=== PATIENT | female | born 1945 | race Caucasian/White ===

== ENCOUNTER 2016-09-23 01:49 | Inpatient (IN) | payer OTHER ==
[~2016-09-23] VITALS: Ht 160 cm; Wt 143.2 kg
[2016-09-23] MEDS ORDERED: METHYLPRED SOD SUCC 125 MG/2 ML VIAL ONE (05:19)
[2016-09-23] MEDS ORDERED: DUONEB INH ONE ×3 (05:24→07:05)
[2016-09-23] MEDS ORDERED: SALINE FLUSH 10 ML FLUSH PRN (07:05)
[2016-09-23] MEDS ORDERED: NEB-ALBUTEROL 2.5 MG/3 ML INH PRN (07:05)
[2016-09-23] MEDS ORDERED: AZITHROMYCIN 500 MG VIAL IV ONE (07:15)
[2016-09-23] MEDS ORDERED: CEFTRIAXONE 1 GM VIAL ONE (07:16)
[2016-09-23] MEDS ORDERED: SODIUM CHLORIDE 0.9% 250 ML IV ONE (07:16)
[2016-09-23] MEDS: DUONEB INH SCH ×4 (07:18→23:35)
[2016-09-23] MEDS ORDERED: SODIUM CHLORIDE 0.9% 100 ML IV ONE (07:19)
[2016-09-23] MEDS ORDERED: GLUCAGON 1 MG VIAL IM PRN (08:10)
[2016-09-23] MEDS ORDERED: DEXTROSE 50% SYRINGE 50 ML IV PRN (08:10)
[2016-09-23 08:43] VITALS: BP_SYST 155; RESP 22; TEMP 98.5
[2016-09-23 08:48] VITALS: Ht 160 cm; Wt 143.2 kg
[2016-09-23] MEDS: NICOTINE 21 MG/24 HR TRANSDERM SCH (09:00)
[2016-09-23] MEDS ORDERED: KETAMINE INJ 50 MG/ML VIAL IV ONE (09:49)
[2016-09-23] MEDS ORDERED: LIDOCAINE 2% SYR 5 ML IV ONE (09:49)
[2016-09-23] MEDS ORDERED: ESMOLOL 100 MG/10 ML VL IV ONE (09:49)
[2016-09-23] MEDS ORDERED: PROPOFOL 50ML PER ML IV ONE (09:49)
[2016-09-23] MEDS ORDERED: GLYCOPYRROLATE 0.2 MG/ML VIAL IV ONE (09:49)
[2016-09-23 11:31] VITALS: BP_SYST 172; RESP 24; TEMP 98.5
[2016-09-23] MEDS: GUAIFENESIN ER 600 MG TABCR PO SCH ×2 (13:23→20:40)
[2016-09-23] MEDS: SALINE FLUSH 10 ML FLUSH SCH ×2 (13:26→20:40)
[2016-09-23] MEDS: ENOXAPARIN 30 MG/0.3 ML SYR SUBQ SCH (13:28)
[2016-09-23 15:48] VITALS: RESP 20
[2016-09-23 16:11] VITALS: BP_SYST 129; RESP 22; TEMP 98.7
[2016-09-23] MEDS: METHYLPRED SOD SUCC 125 MG/2 ML VIAL IV SCH (18:17)
[2016-09-23 20:17] VITALS: BP_SYST 121; RESP 22; TEMP 98.5
[2016-09-23] MEDS: FLUCONAZOLE 100 MG TAB PO SCH (22:41)
[2016-09-23] MEDS: NYSTATIN 15 GM TOPICAL SCH (22:41)
[2016-09-24] VITALS (7 sets, daily range): BP systolic 134–146; RESP 20–28; TEMP 97.6–98.3
[2016-09-24] MEDS: METHYLPRED SOD SUCC 125 MG/2 ML VIAL IV SCH ×4 (00:04→23:33)
[2016-09-24] MEDS: SODIUM CHLORIDE 0.9% FLUSH BAG 500 ML IV SCH (05:47)
[2016-09-24] MEDS: DUONEB INH SCH ×4 (08:38→23:04)
[2016-09-24] MEDS: SALINE FLUSH 10 ML FLUSH SCH ×2 (09:03→20:04)
[2016-09-24] MEDS: GUAIFENESIN ER 600 MG TABCR PO SCH ×2 (09:06→20:06)
[2016-09-24] MEDS: CEFTRIAXONE 1 GM in SODIUM CHLORIDE 0.9% 50 ML IV SCH (09:06)
[2016-09-24] MEDS: FLUCONAZOLE 100 MG TAB PO SCH (09:06)
[2016-09-24] MEDS: AZITHROMYCIN 250 MG TAB PO SCH (09:06)
[2016-09-24] MEDS: NYSTATIN 15 GM TOPICAL SCH ×2 (09:07→20:04)
[2016-09-24] MEDS: NICOTINE 21 MG/24 HR TRANSDERM SCH (09:07)
[2016-09-24] MEDS: ENOXAPARIN 30 MG/0.3 ML SYR SUBQ SCH (09:07)
[2016-09-24] MEDS ORDERED: CEPACOL LOZENGE PO PRN (18:05)
[2016-09-24] MEDS ORDERED: ACETAMINOPHEN 325 MG TAB PO PRN (18:35)
[2016-09-24] MEDS: TRAMADOL 50 MG TAB PO PRN (18:48)
[2016-09-24] MEDS: NEB-NACL 3% 4 ML NEBU INH SCH ×2 (18:51→23:04)
[2016-09-24] MEDS: NEB-BROVANA 15 MCG/2 ML INH SCH (18:51)
[2016-09-24] MEDS: NEB-BUDESONIDE 0.5 MG INH SCH (18:51)
[2016-09-25] VITALS (7 sets, daily range): BP systolic 138–156; RESP 20–22; TEMP 98–98.3
[2016-09-25] MEDS: SODIUM CHLORIDE 0.9% FLUSH BAG 500 ML IV SCH (05:06)
[2016-09-25] MEDS: NEB-BROVANA 15 MCG/2 ML INH SCH ×2 (06:56→18:12)
[2016-09-25] MEDS: DUONEB INH SCH ×4 (06:56→22:27)
[2016-09-25] MEDS: NEB-BUDESONIDE 0.5 MG INH SCH ×2 (06:56→18:12)
[2016-09-25] MEDS: NEB-NACL 3% 4 ML NEBU INH SCH ×4 (06:56→22:26)
[2016-09-25] MEDS: METHYLPRED SOD SUCC 125 MG/2 ML VIAL IV SCH ×3 (09:39→23:22)
[2016-09-25] MEDS: CEFTRIAXONE 1 GM in SODIUM CHLORIDE 0.9% 50 ML IV SCH (09:39)
[2016-09-25] MEDS: SALINE FLUSH 10 ML FLUSH SCH ×2 (09:39→20:02)
[2016-09-25] MEDS: AZITHROMYCIN 250 MG TAB PO SCH (09:40)
[2016-09-25] MEDS: GUAIFENESIN ER 600 MG TABCR PO SCH ×2 (09:40→20:03)
[2016-09-25] MEDS: ENOXAPARIN 30 MG/0.3 ML SYR SUBQ SCH (09:40)
[2016-09-25] MEDS: NYSTATIN 15 GM TOPICAL SCH ×2 (09:41→20:03)
[2016-09-25] MEDS: NICOTINE 21 MG/24 HR TRANSDERM SCH (09:41)
[2016-09-25] MEDS: FLUCONAZOLE 100 MG TAB PO SCH (09:43)
[2016-09-25] MEDS ORDERED: MISSING DOSE XX ONE ×2 (15:55→17:20)
[2016-09-25] MEDS: BUMETANIDE 1 MG/4 ML VIAL IV SCH ×2 (16:15→17:14)
[2016-09-25] MEDS: LEVEMIR INSULIN SUBQ SCH (20:20)
[2016-09-26 03:35] VITALS: BP_SYST 141; RESP 20; TEMP 98.1
[2016-09-26] MEDS: SODIUM CHLORIDE 0.9% FLUSH BAG 500 ML IV SCH (05:50)
[2016-09-26] MEDS: NEB-BUDESONIDE 0.5 MG INH SCH ×2 (07:27→19:00)
[2016-09-26] MEDS: DUONEB INH SCH ×4 (07:27→22:22)
[2016-09-26] MEDS: NEB-NACL 3% 4 ML NEBU INH SCH ×4 (07:28→22:22)
[2016-09-26] MEDS: NEB-BROVANA 15 MCG/2 ML INH SCH ×2 (07:28→19:00)
[2016-09-26 07:35] VITALS: BP_SYST 155; RESP 17; TEMP 98.1
[2016-09-26] MEDS: METHYLPRED SOD SUCC 125 MG/2 ML VIAL IV SCH (09:28)
[2016-09-26] MEDS: SALINE FLUSH 10 ML FLUSH SCH ×2 (09:28→20:46)
[2016-09-26] MEDS: CEFTRIAXONE 1 GM in SODIUM CHLORIDE 0.9% 50 ML IV SCH (09:29)
[2016-09-26] MEDS: BUMETANIDE 1 MG/4 ML VIAL IV SCH ×3 (09:29→20:45)
[2016-09-26] MEDS: GUAIFENESIN ER 600 MG TABCR PO SCH ×2 (09:30→20:45)
[2016-09-26] MEDS: AZITHROMYCIN 250 MG TAB PO SCH (09:30)
[2016-09-26] MEDS: NYSTATIN 15 GM TOPICAL SCH ×2 (09:30→20:59)
[2016-09-26] MEDS: FLUCONAZOLE 100 MG TAB PO SCH (09:30)
[2016-09-26] MEDS: ENOXAPARIN 30 MG/0.3 ML SYR SUBQ SCH (09:31)
[2016-09-26] MEDS: NICOTINE 21 MG/24 HR TRANSDERM SCH (09:31)
[2016-09-26] MEDS ORDERED: PREDNISONE 20 MG TAB PO SCH (11:35)
[2016-09-26 12:17] VITALS: BP_SYST 159; RESP 15; TEMP 98.5
[2016-09-26] MEDS: OXYMETAZOLINE 0.05% NOSE SPRAY NARE EACH SCH ×2 (13:17→20:46)
[2016-09-26] MEDS: FLUTICASONE 0.05% NA BTL NARE EACH SCH (13:17)
[2016-09-26 14:51] VITALS: BP_SYST 151; RESP 15; TEMP 97.8
[2016-09-26] MEDS: TRAMADOL 50 MG TAB PO PRN ×2 (17:36→22:25)
[2016-09-26 19:37] VITALS: BP_SYST 145; RESP 16; TEMP 98.5
[2016-09-26] MEDS: MICONAZOLE 2% PWD TOPICAL SCH (20:45)
[2016-09-26] MEDS ORDERED: MISSING DOSE XX ONE (20:45)
[2016-09-26] MEDS: LEVEMIR INSULIN SUBQ SCH (20:47)
[2016-09-26 22:52] VITALS: BP_SYST 150; RESP 16; TEMP 97.7
[2016-09-27] VITALS (7 sets, daily range): BP systolic 149–155; RESP 18; TEMP 97.7–98.1
[2016-09-27] MEDS: SODIUM CHLORIDE 0.9% FLUSH BAG 500 ML IV SCH (05:29)
[2016-09-27] MEDS: BUMETANIDE 1 MG/4 ML VIAL IV SCH ×3 (08:20→20:08)
[2016-09-27] MEDS: NICOTINE 21 MG/24 HR TRANSDERM SCH (08:20)
[2016-09-27] MEDS: OXYMETAZOLINE 0.05% NOSE SPRAY NARE EACH SCH ×2 (08:21→20:08)
[2016-09-27] MEDS: GUAIFENESIN ER 600 MG TABCR PO SCH ×2 (08:22→20:10)
[2016-09-27] MEDS: PREDNISONE 20 MG TAB PO SCH (08:22)
[2016-09-27] MEDS: MICONAZOLE 2% PWD TOPICAL SCH ×2 (08:22→20:11)
[2016-09-27] MEDS: FLUCONAZOLE 100 MG TAB PO SCH (08:22)
[2016-09-27] MEDS: ENOXAPARIN 30 MG/0.3 ML SYR SUBQ SCH (08:22)
[2016-09-27] MEDS: FLUTICASONE 0.05% NA BTL NARE EACH SCH (08:23)
[2016-09-27] MEDS: NYSTATIN 15 GM TOPICAL SCH ×2 (08:23→20:11)
[2016-09-27] MEDS: AZITHROMYCIN 250 MG TAB PO SCH (08:23)
[2016-09-27] MEDS: NEB-NACL 3% 4 ML NEBU INH SCH ×4 (08:33→22:58)
[2016-09-27] MEDS: DUONEB INH SCH ×3 (08:33→22:58)
[2016-09-27] MEDS: NEB-BROVANA 15 MCG/2 ML INH SCH ×2 (08:33→19:59)
[2016-09-27] MEDS: NEB-BUDESONIDE 0.5 MG INH SCH ×2 (08:34→19:59)
[2016-09-27] MEDS: SALINE FLUSH 10 ML FLUSH SCH ×2 (09:18→19:54)
[2016-09-27] MEDS: CEFTRIAXONE 1 GM in SODIUM CHLORIDE 0.9% 50 ML IV SCH (09:19)
[2016-09-27] MEDS: TRAMADOL 50 MG TAB PO PRN ×2 (14:08→20:21)
[2016-09-27] MEDS: Carvedilol 3.125 MG TAB PO SCH (20:10)
[2016-09-27] MEDS: LEVEMIR INSULIN SUBQ SCH (20:11)
[2016-09-28] VITALS (10 sets, daily range): BP systolic 136–174; RESP 18–20; TEMP 97.4–98.4
[2016-09-28] MEDS: SODIUM CHLORIDE 0.9% FLUSH BAG 500 ML IV SCH (05:08)
[2016-09-28] MEDS: DUONEB INH SCH ×4 (07:08→22:24)
[2016-09-28] MEDS: NEB-NACL 3% 4 ML NEBU INH SCH ×4 (07:09→22:24)
[2016-09-28] MEDS: NEB-BUDESONIDE 0.5 MG INH SCH ×3 (07:09→22:24)
[2016-09-28] MEDS: NEB-BROVANA 15 MCG/2 ML INH SCH ×3 (07:09→22:24)
[2016-09-28] MEDS: SALINE FLUSH 10 ML FLUSH SCH ×2 (08:00→20:01)
[2016-09-28] MEDS: MICONAZOLE 2% PWD TOPICAL SCH ×3 (08:18→21:00)
[2016-09-28] MEDS: CEFTRIAXONE 1 GM in SODIUM CHLORIDE 0.9% 50 ML IV SCH (08:18)
[2016-09-28] MEDS: OXYMETAZOLINE 0.05% NOSE SPRAY NARE EACH SCH ×2 (08:18→20:01)
[2016-09-28] MEDS: FLUTICASONE 0.05% NA BTL NARE EACH SCH (08:18)
[2016-09-28] MEDS: NYSTATIN 15 GM TOPICAL SCH ×3 (08:19→21:00)
[2016-09-28] MEDS: GUAIFENESIN ER 600 MG TABCR PO SCH ×2 (08:19→20:01)
[2016-09-28] MEDS: AZITHROMYCIN 250 MG TAB PO SCH (08:19)
[2016-09-28] MEDS: ENOXAPARIN 30 MG/0.3 ML SYR SUBQ SCH (08:20)
[2016-09-28] MEDS: PREDNISONE 20 MG TAB PO SCH (08:20)
[2016-09-28] MEDS: Carvedilol 3.125 MG TAB PO SCH ×2 (08:20→20:01)
[2016-09-28] MEDS: NICOTINE 21 MG/24 HR TRANSDERM SCH (08:21)
[2016-09-28] MEDS: BUMETANIDE 1 MG/4 ML VIAL IV SCH ×3 (08:39→20:01)
[2016-09-28] MEDS ORDERED: BUMETANIDE 1 MG/4 ML VIAL IV SCH (17:00)
[2016-09-28] MEDS: LEVEMIR INSULIN SUBQ SCH (20:02)
[2016-09-29] VITALS (10 sets, daily range): BP systolic 145–180; RESP 18–22; TEMP 97.8–98.3
[2016-09-29] MEDS: SODIUM CHLORIDE 0.9% FLUSH BAG 500 ML IV SCH (06:08)
[2016-09-29] MEDS: NEB-BROVANA 15 MCG/2 ML INH SCH ×2 (07:00→19:13)
[2016-09-29] MEDS: NEB-NACL 3% 4 ML NEBU INH SCH ×3 (07:00→19:13)
[2016-09-29] MEDS: DUONEB INH SCH ×3 (07:00→19:13)
[2016-09-29] MEDS: NEB-BUDESONIDE 0.5 MG INH SCH ×2 (07:00→19:13)
[2016-09-29] MEDS: CEFTRIAXONE 1 GM in SODIUM CHLORIDE 0.9% 50 ML IV SCH (09:26)
[2016-09-29] MEDS: SALINE FLUSH 10 ML FLUSH SCH ×2 (09:26→21:08)
[2016-09-29] MEDS: BUMETANIDE 1 MG/4 ML VIAL IV SCH (09:26)
[2016-09-29] MEDS: Carvedilol 3.125 MG TAB PO SCH ×2 (09:27→21:08)
[2016-09-29] MEDS: FLUTICASONE 0.05% NA BTL NARE EACH SCH (09:27)
[2016-09-29] MEDS: OXYMETAZOLINE 0.05% NOSE SPRAY NARE EACH SCH ×2 (09:27→21:08)
[2016-09-29] MEDS: GUAIFENESIN ER 600 MG TABCR PO SCH ×2 (09:28→21:08)
[2016-09-29] MEDS: PREDNISONE 20 MG TAB PO SCH (09:31)
[2016-09-29] MEDS: ENOXAPARIN 30 MG/0.3 ML SYR SUBQ SCH (09:32)
[2016-09-29] MEDS: NICOTINE 21 MG/24 HR TRANSDERM SCH (09:33)
[2016-09-29] MEDS: NYSTATIN 15 GM TOPICAL SCH ×2 (09:33→21:10)
[2016-09-29] MEDS: MICONAZOLE 2% PWD TOPICAL SCH ×2 (09:33→21:09)
[2016-09-29] MEDS: FAMOTIDINE 20 MG TAB PO SCH ×2 (14:56→21:08)
[2016-09-29] MEDS: BUMETANIDE 1 MG TAB PO SCH (17:49)
[2016-09-29] MEDS ORDERED: MISSING DOSE XX ONE (21:05)
[2016-09-29] MEDS: MONTELUKAST 10 MG TAB PO SCH (21:08)
[2016-09-29] MEDS: LEVEMIR INSULIN SUBQ SCH (21:10)
[2016-09-30] MEDS: DUONEB INH SCH ×5 (00:17→23:50)
[2016-09-30] MEDS: NEB-NACL 3% 4 ML NEBU INH SCH ×5 (00:18→23:50)
[2016-09-30 04:05] VITALS: BP_SYST 165
[2016-09-30 04:06] VITALS: RESP 18; TEMP 98
[2016-09-30] MEDS: SODIUM CHLORIDE 0.9% FLUSH BAG 500 ML IV SCH (06:07)
[2016-09-30] MEDS: NEB-BUDESONIDE 0.5 MG INH SCH ×2 (06:09→19:40)
[2016-09-30] MEDS: NEB-BROVANA 15 MCG/2 ML INH SCH ×2 (06:09→19:40)
[2016-09-30 07:27] VITALS: BP_SYST 163; RESP 20; TEMP 97.9
[2016-09-30] MEDS: Carvedilol 3.125 MG TAB PO SCH (09:00)
[2016-09-30] MEDS: NICOTINE 21 MG/24 HR TRANSDERM SCH (09:56)
[2016-09-30] MEDS: ENOXAPARIN 30 MG/0.3 ML SYR SUBQ SCH (09:56)
[2016-09-30] MEDS: CEFTRIAXONE 1 GM in SODIUM CHLORIDE 0.9% 50 ML IV SCH (09:58)
[2016-09-30] MEDS: MICONAZOLE 2% PWD TOPICAL SCH ×2 (09:58→20:10)
[2016-09-30] MEDS: GUAIFENESIN ER 600 MG TABCR PO SCH ×2 (09:59→20:08)
[2016-09-30] MEDS: FLUTICASONE 0.05% NA BTL NARE EACH SCH (09:59)
[2016-09-30] MEDS: BUMETANIDE 1 MG TAB PO SCH (09:59)
[2016-09-30] MEDS: OXYMETAZOLINE 0.05% NOSE SPRAY NARE EACH SCH ×2 (09:59→20:08)
[2016-09-30] MEDS: FAMOTIDINE 20 MG TAB PO SCH ×2 (09:59→20:08)
[2016-09-30] MEDS: PREDNISONE 20 MG TAB PO SCH (10:00)
[2016-09-30] MEDS: SALINE FLUSH 10 ML FLUSH SCH ×2 (10:02→20:08)
[2016-09-30] MEDS: Carvedilol 6.25 MG TAB PO SCH ×2 (10:05→20:08)
[2016-09-30] MEDS ORDERED: MISSING DOSE XX ONE ×2 (10:40→20:00)
[2016-09-30] MEDS: NYSTATIN 15 GM TOPICAL SCH ×2 (11:39→20:10)
[2016-09-30] MEDS: LEVOTHYROXINE 0.15 MG TAB PO SCH (12:59)
[2016-09-30 15:06] VITALS: BP_SYST 139; RESP 22; TEMP 98.2
[2016-09-30 19:34] VITALS: BP_SYST 154; RESP 20; TEMP 97.7
[2016-09-30] MEDS: MONTELUKAST 10 MG TAB PO SCH (20:08)
[2016-09-30] MEDS: LEVEMIR INSULIN SUBQ SCH (20:10)
[2016-09-30 23:19] VITALS: BP_SYST 150; RESP 18; TEMP 97.8
[2016-10-01] VITALS (14 sets, daily range): BP systolic 141–161; RESP 12–24; TEMP 97.3–98.2
[2016-10-01] MEDS: SODIUM CHLORIDE 0.9% FLUSH BAG 500 ML IV SCH (06:29)
[2016-10-01] MEDS: LEVOTHYROXINE 0.15 MG TAB PO SCH (07:00)
[2016-10-01] MEDS: NEB-BUDESONIDE 0.5 MG INH SCH ×2 (08:01→19:09)
[2016-10-01] MEDS: DUONEB INH SCH ×4 (08:01→23:05)
[2016-10-01] MEDS: NEB-BROVANA 15 MCG/2 ML INH SCH ×2 (08:01→19:09)
[2016-10-01] MEDS: NEB-NACL 3% 4 ML NEBU INH SCH ×4 (08:01→23:05)
[2016-10-01] MEDS: PREDNISONE 20 MG TAB PO SCH (09:00)
[2016-10-01] MEDS: GUAIFENESIN ER 600 MG TABCR PO SCH ×2 (09:00→20:43)
[2016-10-01] MEDS: FAMOTIDINE 20 MG TAB PO SCH ×2 (09:00→20:43)
[2016-10-01] MEDS: BUMETANIDE 1 MG TAB PO SCH (09:00)
[2016-10-01] MEDS: FLUTICASONE 0.05% NA BTL NARE EACH SCH (09:00)
[2016-10-01] MEDS: Carvedilol 6.25 MG TAB PO SCH ×2 (09:00→20:43)
[2016-10-01] MEDS: NYSTATIN 15 GM TOPICAL SCH ×2 (09:00→22:15)
[2016-10-01] MEDS: OXYMETAZOLINE 0.05% NOSE SPRAY NARE EACH SCH ×2 (09:00→20:42)
[2016-10-01] MEDS: NICOTINE 21 MG/24 HR TRANSDERM SCH (12:28)
[2016-10-01] MEDS: MICONAZOLE 2% PWD TOPICAL SCH ×2 (12:29→20:45)
[2016-10-01] MEDS: SALINE FLUSH 10 ML FLUSH SCH ×2 (12:29→20:42)
[2016-10-01] MEDS: ENOXAPARIN 30 MG/0.3 ML SYR SUBQ SCH (12:29)
[2016-10-01] MEDS ORDERED: LACT RINGERS 1,000 ML IV SCH (14:00)
[2016-10-01] MEDS ORDERED: LIDOCAINE 1% BUFFERED 1 ML SYR INTRADERM PRN (14:00)
[2016-10-01] MEDS ORDERED: MISSING DOSE XX ONE (20:40)
[2016-10-01] MEDS: MONTELUKAST 10 MG TAB PO SCH (20:43)
[2016-10-01] MEDS: LEVEMIR INSULIN SUBQ SCH (20:54)
[2016-10-02 03:23] VITALS: BP_SYST 134; RESP 18; TEMP 98.3
[2016-10-02] MEDS: SODIUM CHLORIDE 0.9% FLUSH BAG 500 ML IV SCH (05:14)
[2016-10-02] MEDS: LEVOTHYROXINE 0.15 MG TAB PO SCH (06:11)
[2016-10-02] MEDS: NEB-NACL 3% 4 ML NEBU INH SCH ×4 (06:46→22:46)
[2016-10-02] MEDS: DUONEB INH SCH ×4 (06:47→22:47)
[2016-10-02] MEDS: NEB-BROVANA 15 MCG/2 ML INH SCH ×2 (06:47→18:50)
[2016-10-02] MEDS: NEB-BUDESONIDE 0.5 MG INH SCH ×2 (06:47→18:50)
[2016-10-02 07:20] VITALS: BP_SYST 145; RESP 20; TEMP 97.1
[2016-10-02] MEDS: Carvedilol 6.25 MG TAB PO SCH ×2 (09:00→20:44)
[2016-10-02] MEDS: OXYMETAZOLINE 0.05% NOSE SPRAY NARE EACH SCH ×2 (09:26→20:44)
[2016-10-02] MEDS: MICONAZOLE 2% PWD TOPICAL SCH ×2 (09:26→20:45)
[2016-10-02] MEDS: NYSTATIN 15 GM TOPICAL SCH ×2 (09:26→20:45)
[2016-10-02] MEDS: FLUTICASONE 0.05% NA BTL NARE EACH SCH (09:26)
[2016-10-02] MEDS: SALINE FLUSH 10 ML FLUSH SCH ×2 (09:26→20:44)
[2016-10-02] MEDS: BUMETANIDE 1 MG TAB PO SCH (09:27)
[2016-10-02] MEDS: NICOTINE 21 MG/24 HR TRANSDERM SCH (09:27)
[2016-10-02] MEDS: FAMOTIDINE 20 MG TAB PO SCH ×2 (09:28→20:44)
[2016-10-02] MEDS: GUAIFENESIN ER 600 MG TABCR PO SCH ×2 (09:28→20:45)
[2016-10-02] MEDS: ENOXAPARIN 30 MG/0.3 ML SYR SUBQ SCH (09:30)
[2016-10-02] MEDS: PREDNISONE 20 MG TAB PO SCH (09:31)
[2016-10-02 10:54] VITALS: BP_SYST 135; RESP 19; TEMP 97.7
[2016-10-02 15:02] VITALS: BP_SYST 125; RESP 18; TEMP 97.1
[2016-10-02 19:24] VITALS: BP_SYST 124; RESP 16; TEMP 97.8
[2016-10-02] MEDS: MONTELUKAST 10 MG TAB PO SCH (20:44)
[2016-10-02] MEDS: LEVEMIR INSULIN SUBQ SCH (20:55)
[2016-10-02 23:10] VITALS: BP_SYST 134; RESP 18; TEMP 97.6
[2016-10-03 03:28] VITALS: BP_SYST 120; RESP 20; TEMP 97.2
[2016-10-03] MEDS: SODIUM CHLORIDE 0.9% FLUSH BAG 500 ML IV SCH (05:23)
[2016-10-03] MEDS: LEVOTHYROXINE 0.15 MG TAB PO SCH (06:14)
[2016-10-03] MEDS: NEB-NACL 3% 4 ML NEBU INH SCH ×4 (06:49→23:00)
[2016-10-03] MEDS: NEB-BROVANA 15 MCG/2 ML INH SCH ×2 (06:49→19:30)
[2016-10-03] MEDS: NEB-BUDESONIDE 0.5 MG INH SCH ×2 (06:49→19:30)
[2016-10-03] MEDS: DUONEB INH SCH ×4 (06:49→23:00)
[2016-10-03 07:47] VITALS: BP_SYST 144; RESP 15; TEMP 98.1
[2016-10-03] MEDS: NICOTINE 21 MG/24 HR TRANSDERM SCH (08:26)
[2016-10-03] MEDS: SALINE FLUSH 10 ML FLUSH SCH ×2 (08:26→20:58)
[2016-10-03] MEDS: NYSTATIN 15 GM TOPICAL SCH ×2 (08:27→21:00)
[2016-10-03] MEDS: ENOXAPARIN 30 MG/0.3 ML SYR SUBQ SCH (08:27)
[2016-10-03] MEDS: FLUTICASONE 0.05% NA BTL NARE EACH SCH (08:27)
[2016-10-03] MEDS: MICONAZOLE 2% PWD TOPICAL SCH ×2 (08:27→21:00)
[2016-10-03] MEDS: OXYMETAZOLINE 0.05% NOSE SPRAY NARE EACH SCH ×2 (08:27→20:58)
[2016-10-03] MEDS: Carvedilol 6.25 MG TAB PO SCH ×2 (09:00→20:58)
[2016-10-03] MEDS: BUMETANIDE 1 MG TAB PO SCH (10:39)
[2016-10-03] MEDS: GUAIFENESIN ER 600 MG TABCR PO SCH ×2 (10:40→20:59)
[2016-10-03] MEDS: FAMOTIDINE 20 MG TAB PO SCH ×2 (10:40→20:58)
[2016-10-03] MEDS: PREDNISONE 20 MG TAB PO SCH (10:40)
[2016-10-03 11:44] VITALS: BP_SYST 149; RESP 15; TEMP 97.9
[2016-10-03 15:42] VITALS: BP_SYST 148; RESP 15; TEMP 97.3
[2016-10-03 19:48] VITALS: BP_SYST 158; RESP 18; TEMP 97.9
[2016-10-03] MEDS: MONTELUKAST 10 MG TAB PO SCH (20:58)
[2016-10-03] MEDS: LEVEMIR INSULIN SUBQ SCH (21:00)
[2016-10-04] VITALS (7 sets, daily range): BP systolic 148–160; RESP 12–22; TEMP 97.9–98.6
[2016-10-04] MEDS: SODIUM CHLORIDE 0.9% FLUSH BAG 500 ML IV SCH (06:00)
[2016-10-04] MEDS: LEVOTHYROXINE 0.15 MG TAB PO SCH (07:00)
[2016-10-04] MEDS: NEB-BUDESONIDE 0.5 MG INH SCH ×2 (07:57→19:50)
[2016-10-04] MEDS: NEB-BROVANA 15 MCG/2 ML INH SCH ×2 (07:57→19:49)
[2016-10-04] MEDS: DUONEB INH SCH ×4 (07:57→23:23)
[2016-10-04] MEDS: NEB-NACL 3% 4 ML NEBU INH SCH ×4 (07:58→23:23)
[2016-10-04] MEDS: SALINE FLUSH 10 ML FLUSH SCH ×2 (08:00→20:00)
[2016-10-04] MEDS: NYSTATIN 15 GM TOPICAL SCH ×2 (08:26→20:59)
[2016-10-04] MEDS: MICONAZOLE 2% PWD TOPICAL SCH ×2 (08:26→20:59)
[2016-10-04] MEDS: FLUTICASONE 0.05% NA BTL NARE EACH SCH (08:26)
[2016-10-04] MEDS: Carvedilol 6.25 MG TAB PO SCH ×2 (08:27→20:58)
[2016-10-04] MEDS: FAMOTIDINE 20 MG TAB PO SCH ×2 (08:27→20:57)
[2016-10-04] MEDS: ENOXAPARIN 30 MG/0.3 ML SYR SUBQ SCH (08:27)
[2016-10-04] MEDS: NICOTINE 21 MG/24 HR TRANSDERM SCH (08:27)
[2016-10-04] MEDS: GUAIFENESIN ER 600 MG TABCR PO SCH ×2 (08:27→20:59)
[2016-10-04] MEDS: BUMETANIDE 1 MG TAB PO SCH (08:27)
[2016-10-04] MEDS: PREDNISONE 20 MG TAB PO SCH (08:27)
[2016-10-04] MEDS: OXYMETAZOLINE 0.05% NOSE SPRAY NARE EACH SCH ×2 (08:28→20:57)
[2016-10-04] MEDS: MONTELUKAST 10 MG TAB PO SCH (20:58)
[2016-10-04] MEDS: LEVEMIR INSULIN SUBQ SCH (21:26)
[2016-10-05 03:30] VITALS: BP_SYST 155; RESP 22; TEMP 98.6
[2016-10-05] MEDS: LEVOTHYROXINE 0.15 MG TAB PO SCH (05:58)
[2016-10-05] MEDS: DUONEB INH SCH (06:00)
[2016-10-05] MEDS: NEB-BROVANA 15 MCG/2 ML INH SCH (06:00)
[2016-10-05] MEDS: NEB-BUDESONIDE 0.5 MG INH SCH (06:00)
[2016-10-05] MEDS: SODIUM CHLORIDE 0.9% FLUSH BAG 500 ML IV SCH (06:00)
[2016-10-05] MEDS: NEB-NACL 3% 4 ML NEBU INH SCH (06:00)
[2016-10-05 07:27] VITALS: BP_SYST 140; RESP 20; TEMP 98.7
[2016-10-05] MEDS: SALINE FLUSH 10 ML FLUSH SCH (07:58)
[2016-10-05] MEDS: OXYMETAZOLINE 0.05% NOSE SPRAY NARE EACH SCH (08:11)
[2016-10-05] MEDS: MICONAZOLE 2% PWD TOPICAL SCH (08:11)
[2016-10-05] MEDS: GUAIFENESIN ER 600 MG TABCR PO SCH (08:12)
[2016-10-05] MEDS: BUMETANIDE 1 MG TAB PO SCH (08:12)
[2016-10-05] MEDS: Carvedilol 6.25 MG TAB PO SCH (08:12)
[2016-10-05] MEDS: FLUTICASONE 0.05% NA BTL NARE EACH SCH (08:12)
[2016-10-05] MEDS: PREDNISONE 20 MG TAB PO SCH (08:13)
[2016-10-05] MEDS: FAMOTIDINE 20 MG TAB PO SCH (08:13)
[2016-10-05] MEDS: NYSTATIN 15 GM TOPICAL SCH (08:14)
[2016-10-05] MEDS: NICOTINE 21 MG/24 HR TRANSDERM SCH (08:14)
[2016-10-05] MEDS: ENOXAPARIN 30 MG/0.3 ML SYR SUBQ SCH (08:14)
[2016-10-05 11:16] VITALS: BP_SYST 140; RESP 20; TEMP 98.7
== END 2016-10-05 12:12 | disposition home health service (06) | DRG 189 ==
LOC: ENRESERVTM → ENRESERVDT → ER 01:49 → ENPENDDIS 07:03 → EMR 07:03 → 5THW 08:30 → 3NT 10-04 11:57
PROVIDERS: ADMIT Family Medicine Addiction Medicine; ATTEND Family Medicine Addiction Medicine
PROC: 0BB48ZX Excision of Right Upper Lobe Bronchus, Via Natural or Artificial Opening Endoscopic, Diagnostic (ICD-10-PCS; 2016-10-01)
PROC: 0BB88ZX Excision of Left Upper Lobe Bronchus, Via Natural or Artificial Opening Endoscopic, Diagnostic (ICD-10-PCS; 2016-10-01)
PROC: 0BB58ZX Excision of Right Middle Lobe Bronchus, Via Natural or Artificial Opening Endoscopic, Diagnostic (ICD-10-PCS; 2016-10-01)
PROC: 0BB38ZX Excision of Right Main Bronchus, Via Natural or Artificial Opening Endoscopic, Diagnostic (ICD-10-PCS; 2016-10-01)
PROC: 0BB78ZX Excision of Left Main Bronchus, Via Natural or Artificial Opening Endoscopic, Diagnostic (ICD-10-PCS; 2016-10-01)
PROC: 0BB68ZX Excision of Right Lower Lobe Bronchus, Via Natural or Artificial Opening Endoscopic, Diagnostic (ICD-10-PCS; 2016-10-01)
PROC: 0BBB8ZX Excision of Left Lower Lobe Bronchus, Via Natural or Artificial Opening Endoscopic, Diagnostic (ICD-10-PCS; 2016-10-01)
PROC: 0BB98ZX Excision of Lingula Bronchus, Via Natural or Artificial Opening Endoscopic, Diagnostic (ICD-10-PCS; 2016-10-01)
PROC: 0B9B8ZX Drainage of Left Lower Lobe Bronchus, Via Natural or Artificial Opening Endoscopic, Diagnostic (ICD-10-PCS; 2016-10-01)
PROC: 0BCB8ZZ Extirpation of Matter from Left Lower Lobe Bronchus, Via Natural or Artificial Opening Endoscopic (ICD-10-PCS; 2016-10-01)
PROC: 0BC18ZZ Extirpation of Matter from Trachea, Via Natural or Artificial Opening Endoscopic (ICD-10-PCS; 2016-10-01)
PROC: 0BC68ZZ Extirpation of Matter from Right Lower Lobe Bronchus, Via Natural or Artificial Opening Endoscopic (ICD-10-PCS; 2016-10-01)
PROC: 0BB28ZX Excision of Carina, Via Natural or Artificial Opening Endoscopic, Diagnostic (ICD-10-PCS; principal; 2016-10-01 12:45)
DX: J96.21 Acute and chronic respiratory failure with hypoxia (principal); I50.23 Acute on chronic systolic (congestive) heart failure; J18.9 Pneumonia, unspecified organism; N17.9 Acute kidney failure, unspecified; N18.4 Chronic kidney disease, stage 4 (severe); J44.0 Chronic obstructive pulmonary disease with (acute) lower respiratory infection; E11.22 Type 2 diabetes mellitus with diabetic chronic kidney disease; I13.0 Hypertensive heart and chronic kidney disease with heart failure and stage 1 through stage 4 chronic kidney disease, or unspecified chronic kidney disease; B44.81 Allergic bronchopulmonary aspergillosis; J32.9 Chronic sinusitis, unspecified; E11.9 Type 2 diabetes mellitus without complications; J44.1 Chronic obstructive pulmonary disease with (acute) exacerbation; Z68.43 Body mass index [BMI] 50.0-59.9, adult; Z72.0 Tobacco use; Z66 Do not resuscitate; R19.7 Diarrhea, unspecified; R53.1 Weakness; E03.9 Hypothyroidism, unspecified; K21.9 Gastro-esophageal reflux disease without esophagitis; M19.90 Unspecified osteoarthritis, unspecified site; E78.5 Hyperlipidemia, unspecified; E66.01 Morbid (severe) obesity due to excess calories; G47.33 Obstructive sleep apnea (adult) (pediatric); Z79.84 Long term (current) use of oral hypoglycemic drugs
CPT/HCPCS: 71010; 71250; 80048; 80053; 80069; 81001; 82040; 82570; 82947; 83036; 83540; 83735; 83970; 84100; 84156; 84300; 84466; 85025; 86003; 86606; 86612; 86635; 86698; 87071; 87088; 87102; 87116; 87205; 87206; 87278; 87299; 87493; 87496; 87529; 87798; 88104; 88108; 89051; 93005; 94640; 94667; 94668; 94799; 96365; 96375; 99223; 99232; 99233; 99239